=== PATIENT | female | born 1970 | race Caucasian/White ===

== ENCOUNTER → 2016-12-29 | Outpatient (CLI) | payer BC ==
[2016-12-29 10:09] LABS: BASO % 0.4 %; BASO ABS # 0.02 K/uL (0-0.2); COMPLETE YES; HEMATOCRIT 35.4 % (37-47); LYMPH % 37.4 %; LYMPH ABS # 1.76 K/uL (1.2-3.4); MEAN CELL VOLUME 87.2 fL (80-100); MEAN CORPUSCULAR HEMOGLOBIN 29.3 pg (25-34); MEAN CORPUSCULAR HGB CONC 33.6 g/dl (32-36); MEAN PLATELET VOLUME 11.6 fL (7.4-10.4); MONO % 8.9 %; NEUT % 49.3 %; PLATELET COUNT 274 K/uL (130-400); RED BLOOD COUNT 4.06 M/uL (4.2-5.4); WHITE BLOOD COUNT 4.71 K/uL (4.8-10.8)
[2016-12-29 10:39] LABS: ALT/SGPT 16 U/L (12-78); AST/SGOT 11 U/L (15-37); BLOOD UREA NITROGEN 6 mg/dl (7-18); BUN/CREATININE RATIO 8.5 (10-20); CALCIUM 8.9 mg/dl (8.5-10.1); CARBON DIOXIDE 25 mmol/L (21-32); CHLORIDE 108 mmol/L (98-107); GLUCOSE 87 mg/dl (70-99); POTASSIUM 3.8 mmol/L (3.5-5.1); SODIUM 140 mmol/L (136-145)
[2016-12-29 10:44] LABS: ALB/GLOB RATIO 1.3 (0.9-2); ALKALINE PHOSPHATASE 29 U/L (45-117); TOTAL IRON BINDING CAPACITY 224 mcg/dl (250-450)
== END | disposition home or self-care (01) ==
LOC: C.LAB1850 09:33
PROVIDERS: ATTEND Physician Assistant
DX: R11.2 Nausea with vomiting, unspecified (principal); R53.81 Other malaise